=== PATIENT | male | born 1940 | race Caucasian/White ===

== ENCOUNTER → 2016-05-12 | Outpatient (CLI) | payer OTHER ==
[~2016-05-12] MED LIST: ADVIN25050 INH; AMOX500C3 PO; ATOR-26 PO; FLEC100T21 PO; GLCSC500400 PO; METO25TA56 PO; METO50TA16 PO; POTA8CAP6 PO; SYN150 PO; VITACAP26 PO; WARF10TA4 PO; WARF5TAB7 PO
--- NOTE | 2016-05-12 15:38 | DIAGNOSTIC IMAGING REPORT ---
RIGHT FOOT 3 VIEWS CLINICAL HISTORY: Nonhealing ulcer. Attention fourth and fifth toes. FINDINGS: 3 views of the right foot are obtained. No prior studies are available for comparison at the time of dictation. The skeletal structures are osteopenic. No fracture is seen. Moderate arthritic change is present at the first metatarsophalangeal joint. No periostitis or bony erosion is seen in the fourth or fifth toes as clinically queried. Mild soft tissue swelling is present in the lateral aspect of the foot. No subcutaneous gas or radiodense foreign body is seen. Atherosclerotic calcification is noted in the regional arteries. IMPRESSION: 1. No acute bony abnormality is seen in the right foot. 2. Osteopenia and arthritic change as above. 3. Soft tissue edema is noted in the lateral forefoot and there is atherosclerotic calcification of the regional arteries. Electronically signed by: Genaro Cottrell M.D. 05/12/2016 3:37 PM Dictated Date/Time: 05/12/2016 3:35 PM
== END | disposition home or self-care (01) ==
LOC: C.RAD 14:48
PROVIDERS: ATTEND Emergency Medicine
DX: L98.499 Non-pressure chronic ulcer of skin of other sites with unspecified severity (principal)

== ENCOUNTER → 2016-07-20 | Outpatient (CLI) | payer OTHER ==
[~2016-07-20] MED LIST changes: -AMOX500C3 PO
== END | disposition home or self-care (01) ==
LOC: C.RDSM 13:38
PROVIDERS: ATTEND Family Medicine Sports Medicine
DX: M25.562 Pain in left knee (principal)

== ENCOUNTER 2022-04-01 10:16 | Inpatient (IN) ==
[2022-04-01] MEDS ORDERED: SODIUM BICARB 8.4% INJ 50 MEQ/50 ML SYR IV ONE ×4 (10:30→11:12)
[2022-04-01] MEDS ORDERED: SODIUM BICARBONATE 8.4% INJ 50 MEQ/50 ML VIAL IV STA ×2 (10:33→10:57)
[2022-04-01] MEDS ORDERED: ACTIVATED CHARCOAL/SORBITOL 25 GM/120 ML TUBE PO STA (10:33)
[2022-04-01] MEDS ORDERED: MAGNESIUM SULFATE / D5W 1 GM/100 ML BAG IV SCH (10:37)
[2022-04-01] MEDS ORDERED: MAGNESIUM SULFATE / D5W 1 GM/100 ML BAG IV STA (10:38)
[2022-04-01] MEDS ORDERED: CHARCOAL, ACTIVATED LIQ 25 GM/120 ML TUBE PO ONE ×2 (10:42→10:43)
[2022-04-01] MEDS ORDERED: CHARCOAL, ACTIVATED LIQ 25 GM/120 ML TUBE PO STA (10:49)
[2022-04-01 10:50] LABS: Basophils # (auto) 0.04 K/uL (0-0.2); Basophils % (auto) 0.5 %; Eosinophils # (auto) 0.34 K/uL (0-0.50); Eosinophils % (auto) 4.5 %; Hematocrit (blood only) 41.4 % (40.1-51.0); Hemoglobin 13.8 g/dl (14.0-18.0); Immature Granulocytes # (auto) 0.03 K/uL (0.00-0.02); Immature Granulocytes % (auto) 0.4 %; Lymphocytes # (auto) 2.01 K/uL (1.2-3.4); Lymphocytes % (auto) 26.3 %; Mean Corpuscular Hemoglobin 31.7 pg (25.0-34.0); Mean Corpuscular Hgb Conc 33.3 g/dL (32.0-36.0); Monocytes # (auto) 0.34 K/uL (0.24-0.82); Monocytes % (auto) 4.5 %; Neutrophils # (auto) 4.88 K/uL (1.4-6.5); Neutrophils % (auto) 63.8 %; Platelet Count 230 K/uL (130-400); RDW Coefficient of Variation 12.8 % (11.5-14.5); Red Blood Count 4.36 M/uL (4.63-6.08); White Blood Count 7.64 K/ul (4.8-10.8)
[2022-04-01 10:58] LABS: iSTAT Creatinine 1.1 mg/dl (0.6-1.3); iSTAT Hemoglobin 13.9 g/dl (14.0-18.0); iSTAT Ionized Calcium 1.13 mmol/l (1.12-1.32); iSTAT Potassium 3.9 mmol/L (3.3-5.0)
[2022-04-01 11:07] LABS: Prothrombin Time 10.9 Seconds (9.0-12.0)
[2022-04-01] MEDS: MAGNESIUM SULFATE / D5W 1 GM/100 ML BAG IV SCH ×2 (11:08→11:38)
[2022-04-01] MEDS ORDERED: SODIUM BICARBONATE 8.4% 150 MEQ in WATER, STERILE 1,000 ML IV ONE (11:15)
[2022-04-01 11:21] LABS: Albumin Globulin Ratio 1.2 (0.9-2); Albumin Level 3.9 gm/dl (3.4-5.0); BUN Creatinine Ratio 10.5 (10-20); Bilirubin,Total 1.2 mg/dl (0.2-1.0); Creatinine Clr Calc Pharmacy 60.5 ml/min; Est GFR (African American) 76.2 ml/min; Est GFR (Non-African American) 65.8 ml/min; Globulin 3.3 gm/dl (2.5-4.0); Magnesium 1.8 mg/dl (1.7-2.4); Total Protein 7.2 gm/dl (6.0-8.3)
[2022-04-01 11:22] LABS: Base Excess VBG 19.7 mEq/L; HCO3 VBG 45 mmol/L; Oxygen Saturation VBG < 60.0 %; PCO2 VBG 53 mmHg (38-50); PO2 VBG 22 mmHg; pH VBG 7.54 (7.36-7.41)
[2022-04-01 11:23] LABS: Acetaminophen < 3 ug/ml (10-30); Salicylate < 3.0 mg/dl (3.0-30)
[2022-04-01] MEDS ORDERED: POTASSIUM CHLORIDE 10 MEQ TABCR PO STA (11:28)
[2022-04-01] MEDS ORDERED: POTASSIUM CHLORIDE / WTR 10 MEQ/100 ML PLCT IV ONE (11:28)
[2022-04-01] MEDS ORDERED: SODIUM BICARB 8.4% INJ 50 MEQ/50 ML SYR IV STA (11:28)
--- NOTE | 2022-04-01 11:35 | XRay Report ---
XR chest 1V portable HISTORY: 82 years-old Male od acute drug overdose COMPARISON: 02/02/2011 TECHNIQUE: AP view of the chest FINDINGS: Cardiac silhouette is enlarged. Pulmonary vascular congestion with interstitial coarsening. No pneumo thorax. Once again the costophrenic angles. Ill-defined bilateral airspace densities. Degenerative ch anges of the shoulders and spine. IMPRESSION: 1. Cardiomegaly with right greater than left interstitial coarsening. Findings may represent pulmonar y edema versus a nonspecific interstitial sinus. 2. Probable trace pleural effusions. ACT 112: Negative or not required by law. The above report was generated using voice recognition software. It may contain grammatical, syntax o r spelling errors. Electronically signed by: Isauro Ahn M.D. 04/01/2022 11:33 AM
[2022-04-01 11:39] LABS: Appearance Urine Clear (Clear); Bilirubin Urine Negative (Negative); Blood Urine Negative (Negative); Color Urine Yellow; Glucose Urine UA Negative (Negative); Ketones Urine Negative (Negative); Leukocyte Esterase Urine Negative (Negative); Nitrite Urine Negative (Negative); Protein Urine Negative (Negative); Specific Gravity Urine 1.008 (1.000-1.030); Urobilinogen Urine Negative (Negative); pH Urine >= 9.0 (4.5-7.5)
[2022-04-01 11:53] LABS: Troponin I High Sensitivity 9.6 pg/ml (0-20)
[2022-04-01 11:58] LABS: Amphetamines+Metham, Urine Neg (Neg); Barbiturates, Urine Neg (Neg); Benzodiazepine, Urine Neg (Neg); Cocaine, Urine Neg (Neg); MDMA (Ecstacy), Urine Neg (Neg); Methadone, Urine Neg (Neg); Opiate, Urine Neg (Neg); Phencyclidine, Urine Neg (Neg)
--- NOTE | 2022-04-01 12:30 | Emergency Department Note ---
Impression & Plan Overdose ED Provider Note INFORMANT: Patient and EMS ED PROVIDER(S): Edison Carrillo DO CHIEF COMPLAINT: Flecainide overdose PLAN: Disposition: ICU Condition: Stable Outpatient prescription management: none Referral: Hospitalist and eyeglass inspector as well as toxicology MEDICAL DECISION MAKING: This is a 82-year-old male who presents to the ED with a chief complaint of an accidental overdose. The patient is chronically on flecainide as well as apixaban for chronic A. fib. The patient states that he took approximately 10- 100 mg flecainide tablets around 8 AM. This was by accident, he reports. The patient began feeling lightheaded and dizzy later this morning. He also had some nausea and shakiness. The patient subsequently called EMS and was brought into the ED for evaluation. He did have a little vomiting in route by EMS but did not vomit up any pills. The patient states that he actually drank 38 ounces of Gatorade after the ingestion and tried to cause himself to vomit but was unable to do so. Shortly after the patient's arrival, I did speak with poison control. I spoke with Dr. Barger. He recommended 100 mg of activated charcoal as well as 4 A of IV bicarb 8.4% as well as 4 g of IV magnesium sulfate. This was all administered shortly after the patient arrived. His initial twelve-lead EKG shows a wide QRS complex almost sine wave like at a rate of 63. Initial labs showed a sodium 134 and a potassium of 3.9. This was a i- STAT lab. His BUN is 10 and creatinine is 1.1. Hemoglobin 13.9. Anion gap was 20. After 4 A of IV bicarb the patient's QRS did narrow some. His QTC remained slightly elevated. The patient was then placed on a sodium bicarb drip 3 A of bicarb and 1 L of water at 250 cc/h. The patient received a total of 10 A of IV bicarb. He also was then given 40 mill equivalents of oral potassium as well as started on a IV potassium drip at 10 mill equivalents per hour. Toxicology reports that the sodium goal is 1 50-1 55 with a pH goal of 7.5-7.55 on a VBG. He is to have blood work every 2 hours and an EKG every hour until stable. Dr. Barger from toxicology also suggested perhaps a prophylactic transvenous pacemaker if heart rates go below 60. I did speak with the eyeglass inspector, Dr. De Los Santos as well as the hospitalist here. The patient will be admitted to the ICU for further evaluation and care. The patient was never hypotensive during his ED stay. A chest x-ray was negative for acute disease. CBC and chemistry panel was unremarkable. Glucose is 201. Troponin was negative. Lipase was negative. Tylenol, salicylates and alcohol were negative. Urine tox screen was negative. 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 Triage Nursing notes reviewed. Vital Signs: reviewed Prior /Outside records reviewed: none Differential diagnosis: Differential includes overdose, arrhythmia, electrolyte abnormality, other toxicologic or metabolic issues. Diagnostics, as interpreted by me: 12 lead ECG: Twelve-lead EKG #1: Per my interpretation shows wide QRS sine wave type pattern at a rate of 63. Wide QRS and prolonged QTC, twelve-lead EKG #2 there is a wide-complex QRS with a narrow QRS complex and slightly improved QTC. No ectopy. Twelve-lead EKG #4 shows a sinus rhythm first-degree AV block heart rate of 62. Right bundle branch block. QRS duration is 202 and QTC is 554. Cardiac Monitoring: Monitor showed a wide QRS complex that narrowed with time. Medical decision rules: none Imaging studies: Chest x-ray: No acute disease Procedures: none. Critical care: I have personally spent 90 minutes of critical care time in the direct management of this patient. This includes bedside care, interpretation of diagnostic studies, and testing, discussion with consultants, patient, and family members, and other required patient management activities. This 90 minutes is in excess of all separately billable procedures. HPI: This is a 82-year-old male who presents to the ED with a chief complaint of an accidental overdose. The patient is chronically on flecainide as well as apixaban for chronic A. fib. The patient states that he took approximately 10- 100 mg flecainide tablets around 8 AM. This was by accident, he reports. The patient began feeling lightheaded and dizzy later this morning. He also had some nausea and shakiness. The patient subsequently called EMS and was brought into the ED for evaluation. PAST MEDICAL HISTORY:A. fib chronically on Xarelto and flecainide see below. PAST SURGICAL HISTORY: See Below SOCIAL HISTORY: See Below. Lives with . HOME MEDICATIONS: See Below ALLERGIES: See Below VITALS: See Below PHYSICAL EXAMINATION: CONSTITUTIONAL/VITAL SIGNS: Reviewed GENERAL: No distress. Awake alert and oriented. INTEGUMENTARY: Warm, dry, and [place]. HEAD: Normocephalic. EYES: without scleral icterus. ENT/OROPHARYNX: clear and moist. RESPIRATORY: No increased work of breathing. Lungs clear. CARDIOVASCULAR: Regular rate. Regular rhythm. GI/ABDOMEN: Soft and nontender. . EXTREMITIES: Normal NEUROLOGICAL: Intact without focal deficits. PSYCHIATRIC: Normal affect. MUSCULOSKELETAL: Normal. TRIAGE NURSING DOCUMENTATION REVIEWED. Past Med/Surg History Medical History A-fib Diabetes Family History Other Heart disease Hypertension Social History Smoking Status: Former smoker Tobacco Type: Cigarettes Preferred Language: Palestinian marital status: Current Living Situation: Spouse current occupational status: employed Feels Safe at Home: Yes Allergies Allergies Allergy/AdvReac Type Severity Reaction Status Date / Time No Known Allergies Allergy Unknown Unverified 02/10/16 08:28 Home Meds Home Medications Medication Instructions Recorded Confirmed ATORVASTATIN (LIPITOR) 80 mg PO DAILY ##0 02/02/11 Fluticasone Prop/Salmeterol 1 puff inhalation BID ##0 02/02/11 (Advair Diskus 250/50 Mcg *) Glucosamine-Chondroitin 1 tab PO DAILY ##0 02/02/11 (Glucosamine/Chondroitin) Levothyroxine (Synthroid *) 150 mcg PO DAILY ##0 02/02/11 Metoprolol Tartrate (Lopressor) 50 mg PO HS ##0 04/13/11 (Lopressor) Metoprolol Tartrate (Lopressor) 100 mg PO DAILY ##0 04/13/11 (Lopressor) Flecainide (Tambocor) 100 mg PO BID #0 tabs 12/17/13 Warfarin Sod (Jantoven) 5 mg PO 6XWK #0 tabs 12/17/13 Potassium Chloride (Klor-Con Ext PO DAILY #0 caps 10/20/15 Rel) VITAMINS C & E (VITAMIN C) 1 tab PO DAILY ##0 10/20/15 Warfarin Sod (Jantoven) 10 mg PO SUNDAY #0 tabs 11/20/15 Results & Data (ED) Vital Signs Vital Signs - 24 hr 04/01/22 10:20 04/01/22 10:30 04/01/22 10:45 Temperature 36.9 C Temperature Source Oral Pulse Rate 62 61 62 Pulse Rate from SpO2 Sensor 62 64 Pulse Rhythm Regular Pulse Strength Normal Respiratory Rate 20 25 H 23 Respiratory Effort / Characteristics Non-Labored Spontaneous Respiratory Depth Normal Respiratory Pattern Regular Blood Pressure 147/96 H 159/95 H Blood Pressure Mean 113 116 Blood Pressure Position Lying Pulse Oximetry 99 96 100 Oxygen Delivery Method Room Air Sepsis Recent Fever Within 48 Hours No Sepsis New/Unexplained Change in Mental Status N/A Sepsis Action Taken by Nursing No Action Required 04/01/22 11:00 04/01/22 11:15 04/01/22 11:15 Temperature Temperature Source Pulse Rate 63 66 Pulse Rate from SpO2 Sensor 63 66 Pulse Rhythm Pulse Strength Respiratory Rate 22 20 Respiratory Effort / Characteristics Respiratory Depth Respiratory Pattern Blood Pressure 147/83 H 140/77 Blood Pressure Mean 104 98 Blood Pressure Position Pulse Oximetry 97 96 Oxygen Delivery Method Sepsis Recent Fever Within 48 Hours Sepsis New/Unexplained Change in Mental Status Sepsis Action Taken by Nursing 04/01/22 11:30 04/01/22 11:30 04/01/22 11:45 Temperature Temperature Source Pulse Rate 59 L Pulse Rate from SpO2 Sensor 60 Pulse Rhythm Pulse Strength Respiratory Rate 17 Respiratory Effort / Characteristics Respiratory Depth Respiratory Pattern Blood Pressure 137/73 132/81 Blood Pressure Mean 94 98 Blood Pressure Position Pulse Oximetry 95 Oxygen Delivery Method Sepsis Recent Fever Within 48 Hours Sepsis New/Unexplained Change in Mental Status Sepsis Action Taken by Nursing 04/01/22 11:45 04/01/22 12:00 04/01/22 12:00 Temperature Temperature Source Pulse Rate 64 67 Pulse Rate from SpO2 Sensor 65 67 Pulse Rhythm Pulse Strength Respiratory Rate 17 21 Respiratory Effort / Characteristics Respiratory Depth Respiratory Pattern Blood Pressure 151/101 H Blood Pressure Mean 117 Blood Pressure Position Pulse Oximetry 94 92 Oxygen Delivery Method Sepsis Recent Fever Within 48 Hours Sepsis New/Unexplained Change in Mental Status Sepsis Action Taken by Nursing Laboratory Data 04/01/22 10:30 04/01/22 10:30 Lab Results 04/01/22 04/01/22 04/01/22 Range/Units 10:30 10:30 10:30 WBC (4.8-10.8) K/ul RBC (4.63-6.08) M/uL Hgb (14.0-18.0) g/dl POC Hgb (14.0-18.0) g/dl Hct (40.1-51.0) % POC Hct (42-52) % MCV (80.0-100.0) fL MCH (25.0-34.0) pg MCHC (32.0-36.0) g/dL RDW Std Deviation (36.4-46.3) fL RDW Coeff of Segun (11.5-14.5) % Plt Count (130-400) K/uL MPV (9.4-12.4) fL Immature Gran % (Auto) % Neut % (Auto) % Lymph % (Auto) % [place] % (Auto) % Eos % (Auto) % Baso % (Auto) % Neut # (Auto) (1.4-6.5) K/uL Lymph # (Auto) (1.2-3.4) K/uL [place] # (Auto) (0.24-0.82) K/uL Eos # (Auto) (0-0.50) K/uL Baso # (Auto) (0-0.2) K/uL Immature Gran # (Auto) (0.00-0.02) K/uL PT 10.9 (9.0-12.0) Seconds INR 1.0 (0.9-1.1) VBG pH (7.36-7.41) VBG pCO2 (38-50) mmHg VBG pO2 mmHg VBG HCO3 mmol/L VBG O2 Saturation % VBG Base Excess mEq/L POC Sodium (135-144) mmol/L Sodium 134 L (136-145) mmol/L POC Potassium (3.3-5.0) mmol/L Potassium 4.0 (3.5-5.1) mmol/L POC Chloride (101-112) mmol/L Chloride 98 (98-107) mmol/L Carbon Dioxide 26 (21-32) mmol/L POC Total CO2 (24-31) mmol/L Anion Gap 10 (3-11) POC Anion Gap (16-25) mmol/L POC BUN (7-18) mg/dl BUN 11 (6-23) mg/dl Creatinine 1.05 (0.6-1.4) mg/dl POC Creatinine (0.6-1.3) mg/dl Est Cr Clr Drug Dosing 60.5 ml/min Est GFR ( Amer) 76.2 ml/min Est GFR (Non-Af Amer) 65.8 ml/min BUN/Creatinine Ratio 10.5 (10-20) Glucose 201 H (70-99(Fasting)) mg/dl POC Glucose (other) (70-99) mg/dl Calcium 9.0 (8.5-10.1) mg/dl POC Ioniz Calcium David (1.12-1.32) mmol/l Magnesium 1.8 (1.7-2.4) mg/dl Total Bilirubin 1.2 H (0.2-1.0) mg/dl AST 21 (13-39) U/L ALT 21 (7-52) U/L Alkaline Phosphatase 73 (34-104) U/L Total Creatine Kinase 77 (30-223) U/L Troponin I High Sens 9.6 (0-20) pg/ml Total Protein 7.2 (6.0-8.3) gm/dl Albumin 3.9 (3.4-5.0) gm/dl Globulin 3.3 (2.5-4.0) gm/dl Albumin/Globulin Ratio 1.2 (0.9-2) Lipase 40 (11-82) U/L Urine Color Urine Appearance (Clear) Urine pH (4.5-7.5) Ur Specific [place] (1.000-1.030) Urine Protein (Negative) Urine Glucose (UA) (Negative) Urine Ketones (Negative) Urine Blood (Negative) Urine Nitrite (Negative) Urine Bilirubin (Negative) Urine Urobilinogen (Negative) Ur Leukocyte Esterase (Negative) Salicylates < 3.0 L (3.0-30) mg/dl Urine Opiates Screen (Neg) Ur Methadone, Qual (Neg) Acetaminophen < 3 L (10-30) ug/ml Urine Barbiturates (Neg) Ur Phencyclidine (PCP) (Neg) U Amphetamin/Meth Scrn (Neg) MDMA (Ecstasy) Screen (Neg) U Benzodiazepines Scrn (Neg) Ur Cocaine Metabolite (Neg) U Marijuana (THC) Screen (Neg) Ethyl Alcohol mg/dL (<10.0) mg/dl 04/01/22 04/01/22 04/01/22 Range/Units 10:30 10:45 10:57 WBC 7.64 (4.8-10.8) K/ul RBC 4.36 L (4.63-6.08) M/uL Hgb 13.8 L (14.0-18.0) g/dl POC Hgb 13.9 L (14.0-18.0) g/dl Hct 41.4 (40.1-51.0) % POC Hct 41 L (42-52) % MCV 95.0 (80.0-100.0) fL MCH 31.7 (25.0-34.0) pg MCHC 33.3 (32.0-36.0) g/dL RDW Std Deviation 45.0 (36.4-46.3) fL RDW Coeff of Seg[place] 12.8 (11.5-14.5) % Plt Count 230 (130-400) K/uL MPV 10.0 (9.4-12.4) fL Immature Gran % (Auto) 0.4 % Neut % (Auto) 63.8 % Lymph % (Auto) 26.3 % [place] % (Auto) 4.5 % Eos % (Auto) 4.5 % Baso % (Auto) 0.5 % Neut # (Auto) 4.88 (1.4-6.5) K/uL Lymph # (Auto) 2.01 (1.2-3.4) K/uL [place] # (Auto) 0.34 (0.24-0.82) K/uL Eos # (Auto) 0.34 (0-0.50) K/uL Baso # (Auto) 0.04 (0-0.2) K/uL Immature Gran # (Auto) 0.03 H (0.00-0.02) K/uL PT (9.0-12.0) Seconds INR (0.9-1.1) VBG pH 7.54 H (7.36-7.41) VBG pCO2 53 H (38-50) mmHg VBG pO2 22 mmHg VBG HCO3 45 mmol/L VBG O2 Saturation < 60.0 % VBG Base Excess 19.7 mEq/L POC Sodium 134 L (135-144) mmol/L Sodium (136-145) mmol/L POC Potassium 3.9 (3.3-5.0) mmol/L Potassium (3.5-5.1) mmol/L POC Chloride 94 L (101-112) mmol/L Chloride (98-107) mmol/L Carbon Dioxide (21-32) mmol/L POC Total CO2 25 (24-31) mmol/L Anion Gap (3-11) POC Anion Gap 20.0 (16-25) mmol/L POC BUN 10 (7-18) mg/dl BUN (6-23) mg/dl Creatinine (0.6-1.4) mg/dl POC Creatinine 1.1 (0.6-1.3) mg/dl Est Cr Clr Drug Dosing ml/min Est GFR ( Amer) ml/min Est GFR (Non-Af Amer) ml/min BUN/Creatinine Ratio (10-20) Glucose (70-99(Fasting)) mg/dl POC Glucose (other) 191 H (70-99) mg/dl Calcium (8.5-10.1) mg/dl POC Ioniz Calcium David 1.13 (1.12-1.32) mmol/l Magnesium (1.7-2.4) mg/dl Total Bilirubin (0.2-1.0) mg/dl AST (13-39) U/L ALT (7-52) U/L Alkaline Phosphatase (34-104) U/L Total Creatine Kinase (30-223) U/L Troponin I High Sens (0-20) pg/ml Total Protein (6.0-8.3) gm/dl Albumin (3.4-5.0) gm/dl Globulin (2.5-4.0) gm/dl Albumin/Globulin Ratio (0.9-2) Lipase (11-82) U/L Urine Color Urine Appearance (Clear) Urine pH (4.5-7.5) Ur Specific [place] (1.000-1.030) Urine Protein (Negative) Urine Glucose (UA) (Negative) Urine Ketones (Negative) Urine Blood (Negative) Urine Nitrite (Negative) Urine Bilirubin (Negative) Urine Urobilinogen (Negative) Ur Leukocyte Esterase (Negative) Salicylates (3.0-30) mg/dl Urine Opiates Screen (Neg) Ur Methadone, Qual (Neg) Acetaminophen (10-30) ug/ml Urine Barbiturates (Neg) Ur Phencyclidine (PCP) (Neg) U Amphetamin/Meth Scrn (Neg) MDMA (Ecstasy) Screen (Neg) U Benzodiazepines Scrn (Neg) Ur Cocaine Metabolite (Neg) U Marijuana (THC) Screen (Neg) Ethyl Alcohol mg/dL (<10.0) mg/dl 04/01/22 04/01/22 04/01/22 Range/Units 10:57 11:20 11:20 WBC (4.8-10.8) K/ul RBC (4.63-6.08) M/uL Hgb (14.0-18.0) g/dl POC Hgb (14.0-18.0) g/dl Hct (40.1-51.0) % POC Hct (42-52) % MCV (80.0-100.0) fL MCH (25.0-34.0) pg MCHC (32.0-36.0) g/dL RDW Std Deviation (36.4-46.3) fL RDW Coeff of [place] (11.5-14.5) % Plt Count (130-400) K/uL MPV (9.4-12.4) fL Immature Gran % (Auto) % Neut % (Auto) % Lymph % (Auto) % [place] % (Auto) % Eos % (Auto) % Baso % (Auto) % Neut # (Auto) (1.4-6.5) K/uL Lymph # (Auto) (1.2-3.4) K/uL [place] # (Auto) (0.24-0.82) K/uL Eos # (Auto) (0-0.50) K/uL Baso # (Auto) (0-0.2) K/uL Immature Gran # (Auto) (0.00-0.02) K/uL PT (9.0-12.0) Seconds INR (0.9-1.1) VBG pH (7.36-7.41) VBG pCO2 (38-50) mmHg VBG pO2 mmHg VBG HCO3 mmol/L VBG O2 Saturation % VBG Base Excess mEq/L POC Sodium (135-144) mmol/L Sodium (136-145) mmol/L POC Potassium (3.3-5.0) mmol/L Potassium (3.5-5.1) mmol/L POC Chloride (101-112) mmol/L Chloride (98-107) mmol/L Carbon Dioxide (21-32) mmol/L POC Total CO2 (24-31) mmol/L Anion Gap (3-11) POC Anion Gap (16-25) mmol/L POC BUN (7-18) mg/dl BUN (6-23) mg/dl Creatinine (0.6-1.4) mg/dl POC Creatinine (0.6-1.3) mg/dl Est Cr Clr Drug Dosing ml/min Est GFR ( Amer) ml/min Est GFR (Non-Af Amer) ml/min BUN/Creatinine Ratio (10-20) Glucose (70-99(Fasting)) mg/dl POC Glucose (other) (70-99) mg/dl Calcium (8.5-10.1) mg/dl POC Ioniz Calcium David (1.12-1.32) mmol/l Magnesium (1.7-2.4) mg/dl Total Bilirubin (0.2-1.0) mg/dl AST (13-39) U/L ALT (7-52) U/L Alkaline Phosphatase (34-104) U/L Total Creatine Kinase (30-223) U/L Troponin I High Sens (0-20) pg/ml Total Protein (6.0-8.3) gm/dl Albumin (3.4-5.0) gm/dl Globulin (2.5-4.0) gm/dl Albumin/Globulin Ratio (0.9-2) Lipase (11-82) U/L Urine Color Yellow Urine Appearance Clear (Clear) Urine pH >= 9.0 H (4.5-7.5) Ur Specific [place] 1.008 (1.000-1.030) Urine Protein Negative (Negative) Urine Glucose (UA) Negative (Negative) Urine Ketones Negative (Negative) Urine Blood Negative (Negative) Urine Nitrite Negative (Negative) Urine Bilirubin Negative (Negative) Urine Urobilinogen Negative (Negative) Ur Leukocyte Esterase Negative (Negative) Salicylates (3.0-30) mg/dl Urine Opiates Screen Neg (Neg) Ur Methadone, Qual Neg (Neg) Acetaminophen (10-30) ug/ml Urine Barbiturates Neg (Neg) Ur Phencyclidine (PCP) Neg (Neg) U Amphetamin/Meth Scrn Neg (Neg) MDMA (Ecstasy) Screen Neg (Neg) U Benzodiazepines Scrn Neg (Neg) Ur Cocaine Metabolite Neg (Neg) U Marijuana (THC) Screen Neg (Neg) Ethyl Alcohol mg/dL < 10.0 (<10.0) mg/dl Administered Medications Sodium Bicarbonate 150 meq/ (Sterile Water) 1,150 mls @ 250 mls/hr IV .[id number] ONE Stop: 04/01/22 15:50 Last Admin: 04/01/22 11:40 Dose: 250 mls/hr Documented By: WINTER Potassium Chloride (K Adilson / Wtr) 10 meq in 100 mls @ 100 mls/hr IV ONE ONE; Protocol Stop: 04/01/22 12:27 Last Admin: 04/01/22 11:51 Dose: 100 mls/hr Documented By: WINTER Discontinued Medications Charcoal (Charcoal, Activated Liq 25 Gm/120 Ml Tube) Confirm Administered Dose 50 gm PO .STK-MED ONE Stop: 04/01/22 10:43 Last Admin: 04/01/22 10:57 Dose: Not Given Documented By: NEERU Charcoal (Charcoal, Activated Liq 25 Gm/120 Ml Tube) Confirm Administered Dose 50 gm PO .STK-MED ONE Stop: 04/01/22 10:44 Last Admin: 04/01/22 10:57 Dose: Not Given Documented By: NEERU Charcoal (Charcoal, Activated Liq 25 Gm/120 Ml Tube) 100 gm PO NOW [facility] Stop: 04/01/22 10:50 Last Admin: 04/01/22 10:59 Dose: 100 gm Documented By: NEERU Magnesium Sulfate/Dextrose (Magnesium Sulfate / D5w) 1 gm in 100 mls @ 400 mls/hr IV Q15M [facility] Stop: 04/01/22 10:51 Last Admin: 04/01/22 10:56 Dose: 400 mls/hr Documented By: NEERU Magnesium Sulfate/Dextrose (Magnesium Sulfate / D5w) 1 gm in 100 mls @ 200 mls/hr IV Q30M [facility] Stop: 04/01/22 11:37 Last Admin: 04/01/22 11:38 Dose: 200 mls/hr Documented By: Infusion: 04/01/22 11:38 Dose: 0 mls/hr Documented By: Admin: 04/01/22 11:08 Dose: 200 mls/hr Documented By: NEERU Potassium Chloride (Potassium Chloride 10 Meq Tabcr) 40 meq PO NOW STA Stop: 04/01/22 11:29 Last Admin: 04/01/22 11:51 Dose: 40 meq Documented By: WINTER Sodium Bicarbonate (Sodium Bicarb 8.4% Inj 50 Meq/50 Ml Syr) Confirm Administered Dose 200 meq IV .STK-MED ONE Stop: 04/01/22 10:31 Last Admin: 04/01/22 10:57 Dose: Not Given Documented By: NEERU Sodium Bicarbonate (Sodium Bicarbonate 8.4% Inj 50 Meq/50 Ml Vial) 200 meq IV NOW STA Stop: 04/01/22 10:34 Last Admin: 04/01/22 10:57 Dose: 200 meq Documented By: NEERU Sodium Bicarbonate (Sodium Bicarb 8.4% Inj 50 Meq/50 Ml Syr) Confirm Administered Dose 150 meq IV .STK-MED ONE Stop: 04/01/22 10:56 Last Admin: 04/01/22 10:58 Dose: Not Given Documented By: NEERU Sodium Bicarbonate (Sodium Bicarbonate 8.4% Inj 50 Meq/50 Ml Vial) 200 meq IV NOW STA Stop: 04/01/22 10:58 Last Admin: 04/01/22 11:07 Dose: 200 meq Documented By: NEERU Sodium Bicarbonate (Sodium Bicarb 8.4% Inj 50 Meq/50 Ml Syr) Confirm Administered Dose 50 meq IV .STK-MED ONE Stop: 04/01/22 10:58 Last Admin: 04/01/22 10:58 Dose: Not Given Documented By: NEERU Sodium Bicarbonate (Sodium Bicarb 8.4% Inj 50 Meq/50 Ml Syr) Confirm Administered Dose 200 meq IV .STK-MED ONE Stop: 04/01/22 11:13 Last Admin: 04/01/22 11:40 Dose: Not Given Documented By: WINTER Sodium Bicarbonate (Sodium Bicarb 8.4% Inj 50 Meq/50 Ml Syr) 100 meq IV NOW STA Stop: 04/01/22 11:29 Last Admin: 04/01/22 11:37 Dose: 100 meq Documented By: WINTER Imaging Data Radiologist's Impression: Chest X-Ray 04/01/22 10:33 XR chest 1V portable HISTORY: 82 years-old Male od acute drug overdose COMPARISON: 02/02/2011 TECHNIQUE: AP view of the chest FINDINGS: Cardiac silhouette is enlarged. Pulmonary vascular congestion with interstitial coarsening. No pneumothorax. Once again the costophrenic angles. Ill-defined bilateral airspace densities. Degenerative changes of the shoulders and spine. IMPRESSION: 1. Cardiomegaly with right greater than left interstitial coarsening. Findings may represent pulmonary edema versus a nonspecific interstitial sinus. 2. Probable trace pleural effusions. ACT 112: Negative or not required by law. The above report was generated using voice recognition software. It may contain grammatical, syntax or spelling errors. Electronically signed by: Isauro Ahn M.D. 04/01/2022 11:33 AM Discharge Plan Visit Data Chief Complaint: Overdose (Accidental) Stated Complaint: OVERDOSE ED Provider: Edison Carrillo Discharge Problem: Overdose Patient Disposition: Admitted As Inpatient Forms Stand Alone Forms: [facility], [facility] Emergency Department, Important Visit Information Prescriptions Prescriptions: No Action ATORVASTATIN (LIPITOR) 80 MG tablet 80 mg PO DAILY Qty: 0 Fluticasone Prop/Salmeterol (Advair Diskus 250/50 Mcg *) AEROSOL,POWDR 1 puff Inhalation BID Qty: 0 Glucosamine-Chondroitin (Glucosamine/Chondroitin) 500 MG/400 MG capsule 1 tab PO DAILY Qty: 0 Levothyroxine (Synthroid *) 0.15 MG tablet 150 mcg PO DAILY Qty: 0 Metoprolol Tartrate (Lopressor) (Lopressor) 50 MG tablet 100 mg PO DAILY Qty: 0 Metoprolol Tartrate (Lopressor) (Lopressor) 25 MG tablet 50 mg PO HS Qty: 0 Flecainide (Tambocor) 100 MG tablet 100 mg PO BID Qty: 0 Warfarin Sod (Jantoven) 5 MG tablet 5 mg PO 6XWK Qty: 0 Label Comments: EXCEPT MONDAYS Potassium Chloride (Klor-Con Ext Rel) [id number] PO DAILY Qty: 0 VITAMINS C & E (VITAMIN C) 1 CAP capsule 1 tab PO DAILY Qty: 0 Warfarin Sod (Jantoven) 10 MG tablet 10 mg PO SUNDAY Qty: 0 Referrals Referrals: Timmy Gee DO [Primary Care Provider] -
--- NOTE | 2022-04-01 12:45 | Cardiology Consultation ---
Date of Consultation April 01, 2022 Assessment & Plan (1) Adverse effect of flecainide: (2) PAF (paroxysmal atrial fibrillation): (3) Regular wide QRS complex tachycardia: (4) History of left bundle branch block (LBBB): (5) Hypertension: (6) PFO (patent foramen ovale): (7) Dissection of vertebral artery: (8) Hx-TIA (transient ischemic attack): (9) Overdose: (10) Diabetes: Plan The ER staff discussed with poison control who recommended alkalinization with sodium bicarb and possible temporary pacemaker placement after receiving activated charcoal Luckily, patient is hemodynamically stable with heart rates in the 60s We will ask our critical care colleagues for central line placement in case temporary pacing is necessary Meanwhile, external pacer pads should be placed Continue sodium bicarb as per poison control recommendations Obviously, this is a very unusual situation. I reviewed the literature with several case reports that showed possible benefits of lipid emulsion as well in patients that are hemodynamically unstable No benefit for hemodialysis ECMO is also a possible need in the event of hemodynamic collapse The patient and his daughter at the bedside were counseled on the gravity of the situation and significant possibility of deadly arrhythmias and need for possible temporary pacing, they both state they understand History of Present Illness Reason for Consultation: Flecainide overdose Requesting Physician: NOHEMI Attending Physician: Dr. Odom History of Present Illness The patient is a somewhat demented 82-year-old male who presented to [facility] early in the a.m. of 04/01/2022 with complaints of nausea and lightheadedness after accidentally ingesting 1000 mg of flecainide. The patient states that this was not intentional. He had 10 tablets of flecainide 100 mg in his hand and he forgot they were there. He then mistakenly took all of them. Approximately 20 minutes afterwards symptoms began and he realized that he took those tablets. He attempted to induce vomiting at home but was unable. Upon arrival to the emergency department patient was found to be in wide-complex rhythm without clear P waves. He was hemodynamically stable and alert. The ER staff conferred with poison control and was recommend the patient receive activated charcoal along with sodium bicarb 4 A which she did. I discussed the case with the admitting hospitalist and recommended external pacer pads be placed and once admitted to the intensive care unit asking our critical care colleagues to place a central line for possible temporary pacemaker. Currently the patient states that he still feels nauseous and lightheaded but otherwise well PMHX: 1. Paroxysmal atrial fibrillation controlled in sinus rhythm, combination of flecainide and metoprolol. Chronically anticoagulated with warfarin 2. Chronically abnormal EKG. Nonspecific interventricular conduction delay/left bundle-branch block 3. Hypertension. 4. Hyperlipidemia. 5. History of small patent foramen ovale. 6. History of vertebral dissection with TIA in 1995. 7. Hypothyroidism, on therapy. Allergies Allergy/AdvReac Type Severity Reaction Status Date / Time No Known Allergies Allergy Unknown Unverified 02/10/16 08:28 Home Medications Medication Instructions Recorded Confirmed Type ATORVASTATIN (LIPITOR) 80 mg PO DAILY ##0 02/02/11 04/01/22 History Fluticasone Prop/Salmeterol 1 puff inhalation BID ##0 02/02/11 04/01/22 History (Advair Diskus 250/50 Mcg *) Glucosamine-Chondroitin 1 tab PO DAILY ##0 02/02/11 04/01/22 History (Glucosamine/Chondroitin) Levothyroxine (Synthroid *) 137 mcg PO DAILY ##0 02/02/11 04/01/22 History Metoprolol Tartrate (Lopressor) 50 mg PO HS ##0 04/13/11 04/01/22 History (Lopressor) Metoprolol Tartrate (Lopressor) 100 mg PO DAILY ##0 04/13/11 04/01/22 History (Lopressor) Flecainide (Tambocor) 100 mg PO BID #0 tabs 12/17/13 04/01/22 History Potassium Chloride (Klor-Con Ext PO DAILY #0 caps 10/20/15 History Rel) VITAMINS C & E (VITAMIN C) 1 tab PO DAILY ##0 10/20/15 History apixaban 5 mg tablet (Eliquis) 5 mg 04/01/22 History Patient History Medical History A-fib Diabetes History of left bundle branch block (LBBB) Hypertension PAF (paroxysmal atrial fibrillation) Surgical History H/O sinus surgery Family History Other Heart disease Hypertension Social History Smoking Status: Former smoker Tobacco Type: Cigarettes Hx Alcohol Use: No Hx Substance Use: No Preferred Language: Czech Communication Ability: Effective Beliefs That Will Affect Care: None marital status: Current Living Situation: Alone current occupational status: employed Feels Safe at Home: Yes Safety Concerns: Feels Safe At This Time Review of Systems Review of Systems: All systems reviewed & are unremarkable except as noted in HPI & below Physical Exam Physical Exam: General: Awake, alert and oriented x 3. No acute distress. HEENT: Normocephalic, atraumatic. Pupils equal, round and reactive to light and accommodation. Extraocular muscles are intact. Anicteric sclera. Moist mucous membranes. Neck: No JVD. No bruit. Cardiovascular: Regular. Positive S-4. Normal S-1 and S-2. No S-3. 3/6 mid to late systolic ejection murmur, greatest at the right sternal border, second intercostal space with radiation to the bilateral carotids. No rubs. Pulmonary: Clear to auscultation bilaterally. No rales, rhonchi, or wheezing. Abdomen: Bowel sounds x 4, soft. No rebound, guarding or tenderness. No organomegaly. Extremities: No clubbing, cyanosis or edema. +2 pedal pulses bilaterally. Skin: Warm and dry. Results & Data ([facility]) Vital Signs (Past 12 Hours) Vital Signs Temp Pulse Resp BP Pulse Ox O2 Del Method 04/01/22 12:00 67 21 92 04/01/22 12:00 151/101 H 04/01/22 11:45 64 17 94 04/01/22 11:45 132/81 04/01/22 11:30 59 L 17 95 04/01/22 11:30 137/73 04/01/22 11:15 66 20 96 04/01/22 11:15 140/77 04/01/22 11:00 63 22 147/83 H 97 04/01/22 10:45 62 23 159/95 H 100 04/01/22 10:30 61 25 H 96 04/01/22 10:20 36.9 C 62 20 147/96 H 99 Room Air
[2022-04-01 13:07] LABS: BUN Creatinine Ratio 12.5 (10-20); Calcium 6.9 mg/dl (8.5-10.1); Creatinine Clr Calc Pharmacy 79.4 ml/min; Est GFR (African American) 96.4 ml/min; Est GFR (Non-African American) 83.2 ml/min; Potassium 3.5 mmol/L (3.5-5.1)
[2022-04-01 13:18] LABS: Base Excess VBG 15.8 mEq/L; HCO3 VBG 42 mmol/L; Oxygen Saturation VBG < 60.0 %; PCO2 VBG 55 mmHg (38-50); PO2 VBG 18 mmHg; pH VBG 7.49 (7.36-7.41)
[2022-04-01 13:37] LABS: BUN Creatinine Ratio 10.9 (10-20); Calcium 7.8 mg/dl (8.5-10.1); Creatinine Clr Calc Pharmacy 69.1 ml/min; Est GFR (African American) 89.5 ml/min; Est GFR (Non-African American) 77.2 ml/min; Potassium 3.1 mmol/L (3.5-5.1)
--- NOTE | 2022-04-01 13:55 | History & Physical Report ---
Date of Service April 01, 2022 Assessment & Plan (1) Overdose: (2) Adverse effect of flecainide: (3) Regular wide QRS complex tachycardia: Plan: Patient presents with unintentional ingestion of approximately 10 tablets of 100 mg flecainide approximately 2 and half hours prior to presentation Admitting EKG shows wide QRS complex rhythm with QTC of 600s Admitting CBC, CMP unremarkable Hemodynamically stable; heart rate in 60s Patient received 10 A of bicarbonate, potassium and magnesium supplement in the ED. He also had 100 g of charcoal. Plan; Discussed with Dr. Barger from poison control. Recommendation are as follows: -Obtain twelve-lead EKG every hour to monitor for rhythm and QTc interval. If QTC is prolonged over 700ms or patient has torsades; recommend placement of prophylactic temporary pacemaker. Obtain BMP, magnesium and VBG every 2 hours. Goal of sodium is 150 to 155. Recommends hypertonic saline bolus of 100 cc and infusion if sodium is less than 150. VBG goal of pH of 7.5-7.55 -Continue on 150 M EQ bicarb drip in sterile water at rate of to 250 cc/h for 12 hours. After that, go down on the rate gradually while monitoring EKG every hour. If QRS is widened; restart the bicarb drip at previous rate. If patient becomes volume overloaded; recommend hyper concentrated bicarb with 4 amp of bicarb in 200 mL of free water. -Replete potassium and magnesium as necessary. Patient to be admitted to ICU for closer monitoring. Cardiology consulted for comanagement and possible temporary pacemaker placement. Discussed with director of casework department Chronic conditions; Hypothyroidism, hyperlipidemia, hypertension; home medications are on hold currently. DVT prophylaxis SCDs Full code History of Present Illness Chief Complaint: Unintentional overdose with flecainide Primary Care Provider: Timmy Gee, Past medical history of paroxysmal A. fib on flecainide 100 mg twice daily, metoprolol 100 mg in a.m. and 50 in at bedtime, Eliquis. History of chronic left bundle branch block, hypertension, hyperlipidemia Patient took approximately 10 tablets of 100 mg flecainide at around 8 AM unintentionally. 15 minutes after the ingestion, patient started to feel dizzy. EMS was called and patient was brought here. On the way, patient drank Gatorade/water and also tried to vomit; was unable to. Patient denies any loss of consciousness; reports that dizziness is better when lying down. He he complains of fluttering feeling in the chest along with nausea and shakiness. He denies any chest pain, shortness of breath, visual disturbances, abdominal pain or urinary symptoms. Patient is last echo was in October 2018; shows EF of 55 to 59%. He is currently on Eliquis for A. fib along with flecainide and metoprolol. He lives with his . History of remote smoking; denies other substance use. On presentation to the ED, patient was hemodynamically stable with SBP of 140s to 150. His heart rate was around 60s; he was saturating well in room air. Twelve-lead EKG showed wide QRS complex with QTC of 601. CBC, BMP and LFTs were unremarkable on initial lab test. Patient was given activated charcoal. He was also given 10 A of bicarb. He was started on IV bicarb drip. Patient will be admitted to ICU. Allergies Allergy/AdvReac Type Severity Reaction Status Date / Time No Known Allergies Allergy Unknown Unverified 02/10/16 08:28 Home Medications Medication Instructions Recorded Confirmed Type ATORVASTATIN (LIPITOR) 80 mg PO DAILY ##0 02/02/11 04/01/22 History Fluticasone Prop/Salmeterol 1 puff inhalation BID ##0 02/02/11 04/01/22 History (Advair Diskus 250/50 Mcg *) Glucosamine-Chondroitin 1 tab PO DAILY ##0 02/02/11 04/01/22 History (Glucosamine/Chondroitin) Levothyroxine (Synthroid *) 137 mcg PO DAILY ##0 02/02/11 04/01/22 History Metoprolol Tartrate (Lopressor) 50 mg PO HS ##0 04/13/11 04/01/22 History (Lopressor) Metoprolol Tartrate (Lopressor) 100 mg PO DAILY ##0 04/13/11 04/01/22 History (Lopressor) Flecainide (Tambocor) 100 mg PO BID #0 tabs 12/17/13 04/01/22 History Potassium Chloride (Klor-Con Ext PO DAILY #0 caps 10/20/15 History Rel) VITAMINS C & E (VITAMIN C) 1 tab PO DAILY ##0 10/20/15 History apixaban 5 mg tablet (Eliquis) 5 mg 04/01/22 History Past Med/Surg History Medical History (Updated 04/01/22 @ 13:44 by Shilo Odom MD) A-fib Diabetes History of left bundle branch block (LBBB) Hypertension PAF (paroxysmal atrial fibrillation) Surgical History (Updated 04/01/22 @ 13:45 by Shilo Odom MD) H/O sinus surgery Family History Other Heart disease Hypertension Social History Smoking Status: Former smoker Tobacco Type: Cigarettes Preferred Language: Armenian marital status: Current Living Situation: Spouse current occupational status: employed Feels Safe at Home: Yes Review of Systems Review of Systems: All systems reviewed & are unremarkable except as noted in Subjective Physical Exam Physical Exam: Constitutional: Alert orient x3; not in any distress. Respiratory: normal respiratory effort, lungs clear to auscultation, no wheeze, rales, rhonchi. Normal insp/exp effort, no accessory muscle use Cardiovascular: Irregular, no murmur, no edema Vessels: no JVD or carotid bruit Chest: normal inspection of chest Abdomen: normal bowel sounds, soft, nontender, no hepatosplenomegaly Musculoskeletal: no cyanosis or clubbing, extremities motor strength 5/5 Skin: no rashes, warm and dry normal turgor Neurologic: PERRL, EOMI, accommodation nl, no face palsy, no dysarthria CN's II- XI intact bilaterally and moves all extremities Psychiatric: A+Ox3, euthymic affect Lymphatic: no cervical or axillary lymphadenopathy : deferred Results & Data Results & Data ([facility]) Vital Signs (Past 12 Hours) Vital Signs Temp Pulse Resp BP Pulse Ox O2 Del Method 04/01/22 12:00 67 21 92 04/01/22 12:00 151/101 H 04/01/22 11:45 64 17 94 04/01/22 11:45 132/81 04/01/22 11:30 59 L 17 95 04/01/22 11:30 137/73 04/01/22 11:15 66 20 96 04/01/22 11:15 140/77 04/01/22 11:00 63 22 147/83 H 97 04/01/22 10:45 62 23 159/95 H 100 04/01/22 10:30 61 25 H 96 04/01/22 10:20 36.9 C 62 20 147/96 H 99 Room Air Laboratory Results Laboratory Results WBC 7.64 K/ul (4.8-10.8) 04/01/22 10:30 RBC 4.36 M/uL (4.63-6.08) L 04/01/22 10:30 Hgb 13.8 g/dl (14.0-18.0) L 04/01/22 10:30 POC Hgb 13.9 g/dl (14.0-18.0) L 04/01/22 10:45 Hct 41.4 % (40.1-51.0) 04/01/22 10:30 POC Hct 41 % (42-52) L 04/01/22 10:45 MCV 95.0 fL (80.0-100.0) 04/01/22 10:30 MCH 31.7 pg (25.0-34.0) 04/01/22 10:30 MCHC 33.3 g/dL (32.0-36.0) 04/01/22 10:30 RDW Std Deviation 45.0 fL (36.4-46.3) 04/01/22 10:30 RDW Coeff of Seg[place] 12.8 % (11.5-14.5) 04/01/22 10:30 Plt Count 230 K/uL (130-400) 04/01/22 10:30 MPV 10.0 fL (9.4-12.4) 04/01/22 10:30 Immature Gran % (Auto) 0.4 % 04/01/22 10:30 Neut % (Auto) 63.8 % 04/01/22 10:30 Lymph % (Auto) 26.3 % 04/01/22 10:30 [place] % (Auto) 4.5 % 04/01/22 10:30 Eos % (Auto) 4.5 % 04/01/22 10:30 Baso % (Auto) 0.5 % 04/01/22 10:30 Neut # (Auto) 4.88 K/uL (1.4-6.5) 04/01/22 10:30 Lymph # (Auto) 2.01 K/uL (1.2-3.4) 04/01/22 10:30 [place] # (Auto) 0.34 K/uL (0.24-0.82) 04/01/22 10:30 Eos # (Auto) 0.34 K/uL (0-0.50) 04/01/22 10:30 Baso # (Auto) 0.04 K/uL (0-0.2) 04/01/22 10:30 Immature Gran # (Auto) 0.03 K/uL (0.00-0.02) H 04/01/22 10:30 PT 10.9 Seconds (9.0-12.0) 04/01/22 10:30 INR 1.0 (0.9-1.1) 04/01/22 10:30 VBG pH 7.49 (7.36-7.41) H 04/01/22 13:03 VBG pCO2 55 mmHg (38-50) H 04/01/22 13:03 VBG pO2 18 mmHg 04/01/22 13:03 VBG HCO3 42 mmol/L 04/01/22 13:03 VBG O2 Saturation < 60.0 % 04/01/22 13:03 VBG Base Excess 15.8 mEq/L 04/01/22 13:03 POC Sodium 134 mmol/L (135-144) L 04/01/22 10:45 Sodium 138 mmol/L (136-145) 04/01/22 13:03 POC Potassium 3.9 mmol/L (3.3-5.0) 04/01/22 10:45 Potassium 3.1 mmol/L (3.5-5.1) L 04/01/22 13:03 POC Chloride 94 mmol/L (101-112) L 04/01/22 10:45 Chloride 92 mmol/L (98-107) L 04/01/22 13:03 Carbon Dioxide 39 mmol/L (21-32) H 04/01/22 13:03 POC Total CO2 25 mmol/L (24-31) 04/01/22 10:45 Anion Gap 7 (3-11) 04/01/22 13:03 POC Anion Gap 20.0 mmol/L (16-25) 04/01/22 10:45 POC BUN 10 mg/dl (7-18) 04/01/22 10:45 BUN 10 mg/dl (6-23) 04/01/22 13:03 Creatinine 0.92 mg/dl (0.6-1.4) 04/01/22 13:03 POC Creatinine 1.1 mg/dl (0.6-1.3) 04/01/22 10:45 Est Cr Clr Drug Dosing 69.1 ml/min 04/01/22 13:03 Est GFR ( Amer) 89.5 ml/min 04/01/22 13:03 Est GFR (Non-Af Amer) 77.2 ml/min 04/01/22 13:03 BUN/Creatinine Ratio 10.9 (10-20) 04/01/22 13:03 Glucose 201 mg/dl (70-99(Fasting)) H 04/01/22 13:03 POC Glucose (other) 191 mg/dl (70-99) H 04/01/22 10:45 Calcium 7.8 mg/dl (8.5-10.1) L 04/01/22 13:03 POC Ioniz Calcium David 1.13 mmol/l (1.12-1.32) 04/01/22 10:45 Magnesium 1.8 mg/dl (1.7-2.4) 04/01/22 10:30 Total Bilirubin 1.2 mg/dl (0.2-1.0) H 04/01/22 10:30 AST 21 U/L (13-39) 04/01/22 10:30 ALT 21 U/L (7-52) 04/01/22 10:30 Alkaline Phosphatase 73 U/L (34-104) 04/01/22 10:30 Total Creatine Kinase 77 U/L (30-223) 04/01/22 10:30 Troponin I High Sens 9.6 pg/ml (0-20) 04/01/22 10:30 Total Protein 7.2 gm/dl (6.0-8.3) 04/01/22 10:30 Albumin 3.9 gm/dl (3.4-5.0) 04/01/22 10:30 Globulin 3.3 gm/dl (2.5-4.0) 04/01/22 10:30 Albumin/Globulin Ratio 1.2 (0.9-2) 04/01/22 10:30 Lipase 40 U/L (11-82) 04/01/22 10:30 Urine Color Yellow 04/01/22 11:20 Urine Appearance Clear (Clear) 04/01/22 11:20 Urine pH >= 9.0 (4.5-7.5) H 04/01/22 11:20 Ur Specific [place] 1.008 (1.000-1.030) 04/01/22 11:20 Urine Protein Negative (Negative) 04/01/22 11:20 Urine Glucose (UA) Negative (Negative) 04/01/22 11:20 Urine Ketones Negative (Negative) 04/01/22 11:20 Urine Blood Negative (Negative) 04/01/22 11:20 Urine Nitrite Negative (Negative) 04/01/22 11:20 Urine Bilirubin Negative (Negative) 04/01/22 11:20 Urine Urobilinogen Negative (Negative) 04/01/22 11:20 Ur Leukocyte Esterase Negative (Negative) 04/01/22 11:20 Salicylates < 3.0 mg/dl (3.0-30) L 04/01/22 10:30 Urine Opiates Screen Neg (Neg) 04/01/22 11:20 Ur Methadone, Qual Neg (Neg) 04/01/22 11:20 Acetaminophen < 3 ug/ml (10-30) L 04/01/22 10:30 Urine Barbiturates Neg (Neg) 04/01/22 11:20 Ur Phencyclidine (PCP) Neg (Neg) 04/01/22 11:20 U Amphetamin/Meth Scrn Neg (Neg) 04/01/22 11:20 MDMA (Ecstasy) Screen Neg (Neg) 04/01/22 11:20 U Benzodiazepines Scrn Neg (Neg) 04/01/22 11:20 Ur Cocaine Metabolite Neg (Neg) 04/01/22 11:20 U Marijuana (THC) Screen Neg (Neg) 04/01/22 11:20 Ethyl Alcohol mg/dL < 10.0 mg/dl (<10.0) 04/01/22 10:57 SARS-CoV-2, RNA, NAAT NEGATIVE (NEGATIVE) 04/01/22 12:00 Impressions Chest X-Ray 04/01/22 10:33 XR chest 1V portable HISTORY: 82 years-old Male od acute drug overdose COMPARISON: 02/02/2011 TECHNIQUE: AP view of the chest FINDINGS: Cardiac silhouette is enlarged. Pulmonary vascular congestion with interstitial coarsening. No pneumothorax. Once again the costophrenic angles. Ill-defined bilateral airspace densities. Degenerative changes of the shoulders and spine. IMPRESSION: 1. Cardiomegaly with right greater than left interstitial coarsening. Findings may represent pulmonary edema versus a nonspecific interstitial sinus. 2. Probable trace pleural effusions. ACT 112: Negative or not required by law. The above report was generated using voice recognition software. It may contain grammatical, syntax or spelling errors. Electronically signed by: Isauro Ahn M.D. 04/01/2022 11:33 AM Code Status & VTE Plan VTE Prophylaxis Plan VTE Prophylaxis will be ordered: No
[2022-04-01 14:09] LABS: Base Excess VBG 15.3 mEq/L; HCO3 VBG 39 mmol/L; PCO2 VBG 44 mmHg (38-50); PO2 VBG 45 mmHg; pH VBG 7.56 (7.36-7.41)
[2022-04-01 14:28] LABS: BUN Creatinine Ratio 10.1 (10-20); Calcium 7.7 mg/dl (8.5-10.1); Creatinine Clr Calc Pharmacy 71.4 ml/min; Est GFR (African American) 92.3 ml/min; Est GFR (Non-African American) 79.6 ml/min; Potassium 2.9 mmol/L (3.5-5.1)
[2022-04-01 15:05] LABS: Magnesium 2.5 mg/dl (1.7-2.4)
[2022-04-01] MEDS ORDERED: POTASSIUM CHLORIDE CRTAB 20 MEQ TABCR PO STA ×2 (15:31→20:14)
[2022-04-01] MEDS: POTASSIUM CHLORIDE / WTR 10 MEQ/100 ML PLCT IV SCH ×4 (15:32→18:30)
[2022-04-01] MEDS: SODIUM BICARBONATE 8.4% 150 MEQ, POTASSIUM CHLORIDE 40 MEQ in WATER, STERILE 1,000 ML IV SCH ×2 (15:32→20:00)
--- NOTE | 2022-04-01 15:46 | Critical Care Consultation ---
Date of Consultation April 01, 2022 Assessment & Plan (1) PAF (paroxysmal atrial fibrillation): (2) History of left bundle branch block (LBBB): (3) Overdose: (4) Adverse effect of flecainide: (5) Diabetes: Plan 82-year-old male admitted to hospital because of flecainide overdose Past medical history: A. fib on apixaban, dyslipidemia, diabetes -- Flecainide overdose with wide-complex rhythm Poison control has been reached. Goal is to continue with bicarb drip at 250 mill an hour for at least 12 hours. Monitoring EKG every hour. If there is widening of the QRS then would recommend 4 A of bicarb and 200 mL free water to be infused If the sodium is low then hypertonic saline will be given to the patient. If the EKG shows QTC greater than 700 that he will need a pacemaker -- Hypertension/DLP Hold blood pressure medication for the time being -- Hypothyroidism On levothyroxine at home --Prophylaxis VTE: Apixaban on hold GI: None Lines: Peripheral Diet: N.p.o. Plan: As above EKG every hour Labs every 2 hours. We will put a central line for frequent labs as well if in case patient needs transvenous pacemaker Replace potassium as well as alkalosis will push the potassium into the cells. Care was discussed with Dr. Odom and Dr. Frazier I have personally spent 58 minutes of critical care time in the direct management of this patient. This is a life/limb threatening event. This includes time spent evaluating patient, direct bedside care, chart review, placing orders, interpretation of diagnostic studies, discussion with consultants, patient, and family members, as well as other required patient management activities. This time is exclusive of all separately billable procedures, and teaching time and separate from and in addition to any other critical care service time. Please note the above document was generated using voice recognition software. It may contain grammatical, syntax or spelling errors. History of Present Illness History of Present Illness 82-year-old male presented to the hospital complaints of dizziness Past medical history: A. fib on flecainide 100 mg twice a day and metoprolol, hypertension, dyslipidemia, chronic left bundle branch block Patient took 10 pills of flecainide which equals 1 g by mistake. He did try to throw up but was not able to. In the ED patient was found to be developing wide-complex QRS. He was hemodynamically stable He was given charcoal in the ED Dr. Barger from toxicology was contacted by the ED and recommendation was made to continue bicarb drip on the patient in for pH 7.45-7.5, sodium 150-155 Hospitalist was also at bedside at time of examination Patient systolic blood pressure was in the 130s. Heart rate in the 60s with wide-complex rhythm Denies any nausea or vomiting at that time. No shortness of breath, no dizziness. No chest pain. No dysuria, no diarrhea. Allergies Allergy/AdvReac Type Severity Reaction Status Date / Time No Known Allergies Allergy Unknown Unverified 02/10/16 08:28 Home Medications Medication Instructions Recorded Confirmed Type ATORVASTATIN (LIPITOR) 80 mg PO DAILY ##0 02/02/11 04/01/22 History Fluticasone Prop/Salmeterol 1 puff inhalation BID ##0 02/02/11 04/01/22 History (Advair Diskus 250/50 Mcg *) Glucosamine-Chondroitin 1 tab PO DAILY ##0 02/02/11 04/01/22 History (Glucosamine/Chondroitin) Levothyroxine (Synthroid *) 137 mcg PO DAILY ##0 02/02/11 04/01/22 History Metoprolol Tartrate (Lopressor) 50 mg PO HS ##0 04/13/11 04/01/22 History (Lopressor) Metoprolol Tartrate (Lopressor) 100 mg PO DAILY ##0 04/13/11 04/01/22 History (Lopressor) Flecainide (Tambocor) 100 mg PO BID #0 tabs 12/17/13 04/01/22 History Potassium Chloride (Klor-Con Ext PO DAILY #0 caps 10/20/15 History Rel) VITAMINS C & E (VITAMIN C) 1 tab PO DAILY ##0 10/20/15 History apixaban 5 mg tablet (Eliquis) 5 mg 04/01/22 History Patient History Medical History A-fib Diabetes History of left bundle branch block (LBBB) Hypertension PAF (paroxysmal atrial fibrillation) Surgical History H/O sinus surgery Family History Other Heart disease Hypertension Social History Smoking Status: Former smoker Tobacco Type: Cigarettes Hx Alcohol Use: No Hx Substance Use: No Preferred Language: Bulgarian Communication Ability: Effective Beliefs That Will Affect Care: None marital status: Current Living Situation: Alone current occupational status: employed Feels Safe at Home: Yes Safety Concerns: Feels Safe At This Time Review of Systems Review of Systems: All systems reviewed & are unremarkable except as noted in HPI & below Physical Exam Physical Exam: Constitutional: No acute distress HEENT: EOMI, PERRLA Respiratory system: Decreased air entry bilaterally, no wheeze, rhonchi, positive crackles bilateral lower lobes CVS: S1-S2 positive, no murmurs or gallops, distant heart sounds Abdomen: Soft, nontender, nondistended, positive bowel sounds x4 Extremities: +2 pulses bilaterally radialis/ dorsalis pedis, no cyanosis, no edema Neuro: Awake alert oriented x3 Psych: Normal mood and affect G/U: No [place] Skin: no rashes, warm and dry Lymphatic: no cervical or axillary lymphadenopathy Results & Data Results & Data ([facility]) Vital Signs (Past 12 Hours) Vital Signs Temp Pulse Resp BP Pulse Ox O2 Del Method 04/01/22 10:20 36.9 C 62 20 147/96 H 99 Room Air Laboratory Results 04/01/22 10:30 04/01/22 13:59 Coding Level of Care Code Critical Care 1st 30-74 mins Diagnoses PAF (paroxysmal atrial fibrillation) I48.0 History of left bundle branch block (LBBB) Z86.79 Overdose T50.901A Adverse effect of flecainide T46.2X5A Diabetes E11.9 Time Spent (min) 58
[2022-04-01 15:48] LABS: Troponin I High Sensitivity 15.3 pg/ml (0-20)
[2022-04-01] MEDS ORDERED: LIDOCAINE IV BOLUS & DRIP IV STA (16:05)
[2022-04-01 16:09] LABS: BUN Creatinine Ratio 9.9 (10-20); Calcium 7.7 mg/dl (8.5-10.1); Creatinine Clr Calc Pharmacy 64.6 ml/min; Est GFR (African American) 90.6 ml/min; Est GFR (Non-African American) 78.2 ml/min
[2022-04-01] MEDS ORDERED: LIDOCAINE/D5W DRIP 4MG/ML 2,000 MG/500 ML BAG IV SCH (16:15)
[2022-04-01] MEDS ORDERED: [UNRECOGNIZED DRUG - OTHER] IV ONE (16:21)
[2022-04-01] MEDS ORDERED: SODIUM CHLORIDE 3 % 100 ML IV ONE ×3 (16:57→20:12)
[2022-04-01] MEDS ORDERED: STAT IV STA ×4 (16:57→20:12)
--- NOTE | 2022-04-01 17:12 | Communication Note ---
Date of Service: April 01, 2022 Echocardiogram preliminary reviewed shows near normal LV systolic function without significant wall motion abnormalities Repeat EKG shows return of sinus rhythm with underlying bifascicular block similar to previous studies No need for pacing at this time Continue to monitor in ICU per protocol
--- NOTE | 2022-04-01 17:22 | Nephrology Consultation ---
Date of Consultation April 01, 2022 Assessment & Plan (1) Adverse effect of flecainide: poison control suggested I evaluate this pt for dialysis. toxicology physician cites case reports of dialysis helping with the thinking that clearing even 1-2% of drug w/ dialysis might help reduce overall drug burden. the literature on this topic is scant indeed; however case report that I found and other review of pharmacologic data on flecainide suggest that dialysis is not likely to be useful here. while the prospect of even small amount of drug removal is understandably of interest, I have concerns about risks outweighing potential benefits in initiating acute intermittent hemodialysis, an unproven treatment in this clinical situation, which can promote cardiac arrhythmias in a patient already so unstable from rhythm standpoint particularly when the established goals of care involve changing sodium and pH levels away from the normal ranges. if acute HD were to be initiated (and that would have the greatest potential for maximal drug clearance), would likely need extended and repeated treatments on a large dialyzer we have limited dialysis staffing on weekends and would unfortunately not be able to offer treatment until tomorrow in the event his status/needs were to change -continue q2h stat bmp and assessments of serum pH -continue to replete K and mag aggressively to 4 and 2 respectively -continue bicarbonate gtt and intermittent hypertonic saline >>consider IV lipid emulsion therapy which is available here and is a more commonly accepted therapy for flecainide overdose; would work w/ poison control on dosing -consider hyperventilation or/and NG tube /suction to help with serum alk alinization >>>favor discussion of transfer to center that offers ECMO as well ideally as 24/7 acute dialysis services for full range of therapeutic options to treat this rare toxicity Care coordinated w/ Drs. Odom and Lupe. Will continue to follow. History of Present Illness Reason for Consultation: flecainide overdose ? benefit from dialysis Requesting Physician: Dr Odom Attending Physician: Shilo Odom MD History of Present Illness 82 y/o M whom I'm asked to see for possible dialysis to treat flecainide overdose was admitted here this am for same. Pt denies intentional overdose but did take 10 flecainide tablets (1 gm) this am. PMH includes at least mild cognitive impairment, paroxysmal a fib controlled w/ flecainide and metoprolol and on warfarin, chronic / nonspecific LBBB on ECG, HTN, HL, TIA and vertebral dissection 1995, hypothyroid. The pt arrived to the ER in wide complex heart rhythm w/o p waves. poison control, critical care, and cardiology have been following through the day. on presentation poison control advised activated charcoal and 4 amps sodium bicarbonate. magnesium and potassium were aggressively repleted. External pacer pads were placed and pt moved to ICU. Goal through the day has been increasing serum sodium > 150 and alkalinizing serum as well. He is receiving q2h bmp and hourly ECG; lidocaine gtt is being hung. Amiodarone is on standby. as of 1699, ECG showed sinus rhythm similar to prior studies. Allergies Allergy/AdvReac Type Severity Reaction Status Date / Time No Known Allergies Allergy Unknown Unverified 02/10/16 08:28 Home Medications Medication Instructions Recorded Confirmed Type ATORVASTATIN (LIPITOR) 80 mg PO DAILY ##0 02/02/11 04/01/22 History Fluticasone Prop/Salmeterol 1 puff inhalation BID ##0 02/02/11 04/01/22 History (Advair Diskus 250/50 Mcg *) Glucosamine-Chondroitin 1 tab PO DAILY ##0 02/02/11 04/01/22 History (Glucosamine/Chondroitin) Levothyroxine (Synthroid *) 137 mcg PO DAILY ##0 02/02/11 04/01/22 History Metoprolol Tartrate (Lopressor) 50 mg PO HS ##0 04/13/11 04/01/22 History (Lopressor) Metoprolol Tartrate (Lopressor) 100 mg PO DAILY ##0 04/13/11 04/01/22 History (Lopressor) Flecainide (Tambocor) 100 mg PO BID #0 tabs 12/17/13 04/01/22 History Potassium Chloride (Klor-Con Ext PO DAILY #0 caps 10/20/15 History Rel) VITAMINS C & E (VITAMIN C) 1 tab PO DAILY ##0 10/20/15 History apixaban 5 mg tablet (Eliquis) 5 mg 04/01/22 History Patient History Medical History A-fib Diabetes History of left bundle branch block (LBBB) Hypertension PAF (paroxysmal atrial fibrillation) Surgical History H/O sinus surgery Family History Other Heart disease Hypertension Social History Smoking Status: Former smoker Tobacco Type: Cigarettes Hx Alcohol Use: No Hx Substance Use: No Preferred Language: Thai Communication Ability: Effective Beliefs That Will Affect Care: None marital status: Current Living Situation: Alone current occupational status: employed Feels Safe at Home: Yes Safety Concerns: Feels Safe At This Time Review of Systems Review of Systems: All systems reviewed & are unremarkable except as noted in HPI & below Physical Exam Constitutional: well developed, well nourished and cooperative; no acute distress Eyes: EOM intact bilaterally ENMT: Ears: no external ear abnormality Nose: no external nose abnormality Mouth: + dry oral mucous membranes Neck: no nuchal rigidity Respiratory: normal respiratory effort Auscultation: + diminished lung sounds Cardiovascular: Rate/Rhythm: regular rate and regular rhythm Heart Sounds: + murmur Extremities: no edema Gastrointestinal (Abdomen): Inspection/Auscultation: normal bowel sounds Percussion/Palpation: abdomen soft; abdomen nontender Musculoskeletal: Extremities: strength 5/5 throughout Skin: no rashes, warm and dry Neurologic: russell, fluent speech, no tremor Psychiatric: Orientation: oriented x 3 Speech: normal rate/rhythm/volume of speech Insight: + limited insight Judgement: + limited judgement Results & Data ([facility]) Vital Signs (Past 12 Hours) Vital Signs Temp Pulse Resp BP Pulse Ox O2 Del Method 04/01/22 16:01 146/79 H 04/01/22 16:01 63 23 95 04/01/22 16:00 65 18 91 04/01/22 15:45 61 19 97 04/01/22 15:30 61 18 99 04/01/22 15:15 61 26 H 97 04/01/22 15:04 61 22 96 04/01/22 15:04 139/77 04/01/22 15:00 63 19 94 04/01/22 14:30 63 16 89 L 04/01/22 14:15 64 26 H 92 04/01/22 14:00 65 14 91 04/01/22 14:00 130/69 04/01/22 13:45 66 18 94 04/01/22 13:32 129/77 04/01/22 13:32 66 26 H 04/01/22 13:31 66 15 04/01/22 14:01 Room Air 04/01/22 14:01 36.6 C 04/01/22 12:00 67 21 92 04/01/22 12:00 151/101 H 04/01/22 11:45 64 17 94 04/01/22 11:45 132/81 04/01/22 11:30 59 L 17 95 04/01/22 11:30 137/73 04/01/22 11:15 66 20 96 04/01/22 11:15 140/77 04/01/22 11:00 63 22 147/83 H 97 04/01/22 10:45 62 23 159/95 H 100 04/01/22 10:30 61 25 H 96 04/01/22 10:20 36.9 C 62 20 147/96 H 99 Room Air Laboratory Results 04/01/22 10:30 04/01/22 15:42 VBG, UA reviewed as well as mag levels Diagnostic Findings ECGs reviewed CXR 1. Cardiomegaly with right greater than left interstitial coarsening. Findings may represent pulmonary edema versus a nonspecific interstitial sinus. 2. Probable trace pleural effusions.
--- NOTE | 2022-04-01 17:39 | Procedure Note ---
Procedure Note Date of Service April 01, 2022 Note Procedure: Inserting ultrasound-guided central lineman: Dr. Rose Marie Andrade Indication: Flecainide toxicity for hypertonic saline Consent: Consent signed by patient and verified with timeout prior to procedure. Anesthesia: 1% lidocaine without epinephrine local. Procedure: Consent was verified and timeout performed. Appropriate imaging studies were reviewed prior to the procedure. Under aseptic and sterile condition, right IJ vein was accessed under direct ultrasound guidance. Guidewire was confirmed to be within the lumen of vein with the help of ultrasound. Catheter was introduced via Seldinger technique. Guide a wire was removed. Good non-pulsatile blood flow was appreciated from all the ports. The catheter was placed at 16 cm [address] in place. BioPatch was applied to the catheter and a sterile Tegaderm dressing was applied over the catheter with careful attention to sterility. Lung sliding was appreciated post procedure with the help ultrasound. Chest x-ray to follow Patient tolerated the procedure well. Blood loss: Less than 1 cc Complications: None Coding CPT Codes Tubes, Drains, and Vasc Access - Tubes, Drains, and Vasc Access: [id number] Place catheter in vein superior or inferior vena cava ([id number]) Tubes, Drains, and Vasc Access - Tubes, Drains, and Vasc Access: [id number] Ultrasound Guidance For Vascular ([id number]) [facility] [place] Procedure Codes (Charges) Tubes, Drains, and Vasc Access Procedure 1: Tubes, Drains, and Vasc Access: [id number] Place catheter in vein superior or inferior vena cava Procedure 2: Tubes, Drains, and Vasc Access: [id number] Ultrasound Guidance For Vascular
[2022-04-01 17:43] LABS: Base Excess VBG 16.9 mEq/L; HCO3 VBG 43 mmol/L; Oxygen Saturation VBG < 60.0 %; PCO2 VBG 55 mmHg (38-50); PO2 VBG 30 mmHg
--- NOTE | 2022-04-01 17:44 | XRay Report ---
XR chest 1V portable HISTORY: 82 years-old Male right IJ status post placement of a right IJ central venous catheter COMPARISON: Chest radiograph of same day at 11:19 AM TECHNIQUE: AP view of the chest FINDINGS: Cardiac silhouette is enlarged. Status post placement of a right IJ catheter with distal tip in the e xpected location of the mid SVC. Pulmonary vascular congestion with interstitial coarsening. No pneum othorax. Trace pleural effusions. Ill-defined bilateral airspace densities, mildly progressed on the left. Degenerative changes of the shoulders and spine. Subtle bilateral rib fractures are favored to be chronic. IMPRESSION: Status post placement of a right IJ central venous catheter. No postprocedural pneumothor ax. ACT 112: Negative or not required by law. The above report was generated using voice recognition software. It may contain grammatical, syntax o r spelling errors. Electronically signed by: Isauro Ahn M.D. 04/01/2022 5:43 PM
--- NOTE | 2022-04-01 17:46 | Communication Note ---
Date of Service: April 01, 2022 Critical CARE addendum: Patient's repeat EKG done at 3:11 PM showed QRS 192 with QTC of 568. Sodium was 139 with potassium of 2.9. I discussed the case with Dr. Barger who is general operator on-call. Recommended to give the patient 1 Mg per KG of lidocaine bolus followed by 100/min drip. I was about to put a central line and so that I can give him hypertonic saline as well as the goal sodium is 150. As I was about to put the central line and I did get a call from him stating that given the QRS is still prolonged he would recommend the hemodialysis. I got in touch with hospitalist and spoke with nephrology Dr. Orona discussed the case with Dr. Barger. Plan was to put the Shiley catheter in but unfortunately we do not have dialysis available in this hospital. I did put a central line in. Patient will be started on hypertonic saline 50 mL blood work will be repeated and then another 50 mL will be given. Patient will be transferred to [facility]. For possible ECMO if need be in future Currently patient is hemodynamically stable. Heart rate is in the high 50s to low 60s. We will continue with bicarb drip, replace potassium. Can give 20 mg of potassium IV fluids central line now. Try to keep potassium greater than 4, magnesium greater than 2. Will need to keep in mind once the patient becomes less alkalotic is potassium was suddenly increased so we will always need to keep that in mind I have personally spent 45 minutes of critical care time in the direct management of this patient. This is a life/limb threatening event. This includes time spent evaluating patient, direct bedside care, chart review, placing orders, interpretation of diagnostic studies, discussion with consultants, patient, and family members, as well as other required patient management activities. This time is exclusive of all separately billable procedures, and teaching time and separate from and in addition to any other critical care service time. Please note the above document was generated using voice recognition software. It may contain grammatical, syntax or spelling errors. Coding Level of Care Code Critical Care ea addt'l 30 min Time Spent (min) 45
--- NOTE | 2022-04-01 18:05 | Discharge Summary ---
Date of Service April 01, 2022 Admission HPI Per Admitting Provider Past medical history of paroxysmal A. fib on flecainide 100 mg twice daily, metoprolol 100 mg in a.m. and 50 in at bedtime, Eliquis. History of chronic left bundle branch block, hypertension, hyperlipidemia Patient took approximately 10 tablets of 100 mg flecainide at around 8 AM unintentionally. 15 minutes after the ingestion, patient started to feel dizzy. EMS was called and patient was brought here. On the way, patient drank Gatorade/water and also tried to vomit; was unable to. Patient denies any loss of consciousness; reports that dizziness is better when lying down. He he complains of fluttering feeling in the chest along with nausea and shakiness. He denies any chest pain, shortness of breath, visual disturbances, abdominal pain or urinary symptoms. Patient is last echo was in October 2018; shows EF of 55 to 59%. He is currently on Eliquis for A. fib along with flecainide and metoprolol. He lives with his . History of remote smoking; denies other substance use. On presentation to the ED, patient was hemodynamically stable with SBP of 140s to 150. His heart rate was around 60s; he was saturating well in room air. Twelve-lead EKG showed wide QRS complex with QTC of 601. CBC, BMP and LFTs were unremarkable on initial lab test. Patient was given activated charcoal. He was also given 10 A of bicarb. He was started on IV bicarb drip. Patient will be admitted to ICU. Admission Exam Per Admitting Provider Constitutional: Alert orient x3; not in any distress. Respiratory: normal respiratory effort, lungs clear to auscultation, no wheeze, rales, rhonchi. Normal insp/exp effort, no accessory muscle use Cardiovascular: Irregular, no murmur, no edema Vessels: no JVD or carotid bruit Chest: normal inspection of chest Abdomen: normal bowel sounds, soft, nontender, no hepatosplenomegaly Musculoskeletal: no cyanosis or clubbing, extremities motor strength 5/5 Skin: no rashes, warm and dry normal turgor Neurologic: PERRL, EOMI, accommodation nl, no face palsy, no dysarthria CN's II- XI intact bilaterally and moves all extremities Psychiatric: A+Ox3, euthymic affect Lymphatic: no cervical or axillary lymphadenopathy : deferred Principal Diagnosis Unintentional flecainide overdose Discharge Exam Constitutional: Alert orient x3; not in any distress. Respiratory: normal respiratory effort, lungs clear to auscultation, no wheeze, rales, rhonchi. Normal insp/exp effort, no accessory muscle use Cardiovascular: Irregular, no murmur, no edema Vessels: no JVD or carotid bruit Chest: normal inspection of chest Abdomen: normal bowel sounds, soft, nontender, no hepatosplenomegaly Musculoskeletal: no cyanosis or clubbing, extremities motor strength 5/5 Skin: no rashes, warm and dry normal turgor Neurologic: PERRL, EOMI, accommodation nl, no face palsy, no dysarthria CN's II- XI intact bilaterally and moves all extremities Psychiatric: A+Ox3, euthymic affect Lymphatic: no cervical or axillary lymphadenopathy : deferred Discharge Data Allergies Allergy/AdvReac Type Severity Reaction Status Date / Time No Known Allergies Allergy Unknown Unverified 02/10/16 08:28 Consultations 04/01/22 11:33 ED Decision to Admit Stat 04/01/22 12:20 Consult Cardiology Routine 04/01/22 13:49 Consult Linoleum Layer Apprentice Routine 04/01/22 17:44 Burn CD for patient Stat Ordered Studies 04/01/22 14:28 US point of care ultrasound Urgent Hospital Course (1) Overdose: (2) Adverse effect of flecainide: (3) Regular wide QRS complex tachycardia: Patient presents with unintentional ingestion of approximately 10 tablets of 100 mg flecainide approximately 2 and half hours prior to presentation On presentation to the ED, patient was hemodynamically stable with SBP of 140s to 150. His heart rate was around 60s; he was saturating well in room air. Twelve-lead EKG showed wide QRS complex with QTC of 601. CBC, BMP and LFTs were unremarkable on initial lab test. Patient was given activated charcoal. He was also given 10 A of bicarb. He was started on IV bicarb drip. Patient was admitted to ICU. Discussion was again done with window shade ring coverer on-call Dr. Barger; recommended that patient to be given 1 mg/kg of lidocaine bolus followed by 100/min drip as his QTC continued to prolong. Central line was also placed to give hypertonic saline with sodium goal of 150. Toxicology recommended hemodialysis as QRS was still prolonged; No dialysis capability was available in the hospital after discussion with Nephrology. Patient to be transferred to [facility] for possible need for emergent hemodialysis/ ECMO in the future. Total Time Total Time Spent Total Time Spent (In Minutes): 120 Discharge Plan Discharge Items Patient Disposition: Transfer Acute Care Hospital Reason For Visit: FLECANIDE TOXICITY Discharge Diagnosis: Unintentional flecainide overdose Activity: Resume your previous activity Non-emergency contact: Primary Care Provider Call non-emergency contact if: you have any medication questions and your symptoms worsen Follow-up/Referrals: Timmy Gee DO [Primary Care Provider] - Diet: Regular Addtl Attending Provider Instructions: Patient presented to the ED with unintentional overdose of 10 tablets of flecainide On presentation to the ED, patient was hemodynamically stable with SBP of 140s to 150. His heart rate was around 60s; he was saturating well in room air. Twelve-lead EKG showed wide QRS complex with QTC of 601. CBC, BMP and LFTs were unremarkable on initial lab test. Patient was given activated charcoal. He was also given 10 A of bicarb. He was started on IV bicarb drip. Patient will be admitted to ICU. Discussion was again done with window shade ring coverer on-call Dr. Barger; recommended that patient to be given 1 mg/kg of lidocaine bolus followed by drip. Central line was also placed to give hypertonic saline with sodium goal of 150. Toxicology recommended hemodialysis as QRS was still prolonged; 560. No dialysis capability was available in the hospital after discussion with Nephrology. Patient to be transferred to [facility] for possible need for emergent hemodialysis/ ECMO in the future. Addtl Tool Crib Manager Provider Instructions: Date of Service: April 01, 2022 Current Inpatient Medications Sodium Bicarbonate 150 meq/Potassium Chloride 40 meq/Sterile Water 1,170 mls @ 250 mls/hr IV .Q4H41M [facility] Stop: 05/01/22 15:49 Last Admin: 04/01/22 15:32 Dose: 250 mls/hr Potassium Chloride (K Adilson / Wtr) 10 meq in 100 mls @ 100 mls/hr IV Q1H [facility] Stop: 04/01/22 18:44 Last Admin: 04/01/22 17:35 Dose: Not Given Lidocaine HCl/Dextrose (Xylocaine/D5w Drip 4mg/Ml) 2,000 mg in 500 mls @ 15 mls/hr IV .Q24H [facility]; Protocol Stop: 05/01/22 16:14 Last Admin: 04/01/22 16:42 Dose: 1 mg/min, 15 mls/hr Miscellaneous (Icu Protocol For Hyperglycemia) 1 each N/A ACHS [facility] Stop: 04/03/22 16:29 Pending Studies at Discharge: No Stand-Alone Forms: My [facility] Skilled Items Patient informed of condition?: Yes DNR: No Discharge Level of Care: Other Communicable Disease: No Discharge Prognosis: Stable Lines: PICC Urinary Catheter: No Medications and DC Order Prescriptions: Continued ATORVASTATIN (LIPITOR) 80 MG tablet 80 mg PO DAILY Qty: 0 Fluticasone Prop/Salmeterol (Advair Diskus 250/50 Mcg *) AEROSOL,POWDR 1 puff Inhalation BID Qty: 0 Glucosamine-Chondroitin (Glucosamine/Chondroitin) 500 MG/400 MG capsule 1 tab PO DAILY Qty: 0 Levothyroxine (Synthroid *) 0.15 MG tablet 137 mcg PO DAILY Qty: 0 Metoprolol Tartrate (Lopressor) (Lopressor) 50 MG tablet 100 mg PO DAILY Qty: 0 Metoprolol Tartrate (Lopressor) (Lopressor) 25 MG tablet 50 mg PO HS Qty: 0 Flecainide (Tambocor) 100 MG tablet 100 mg PO BID Qty: 0 Potassium Chloride (Klor-Con Ext Rel) [id number] PO DAILY Qty: 0 VITAMINS C & E (VITAMIN C) 1 CAP capsule 1 tab PO DAILY Qty: 0 Eliquis 5 mg tablet 5 mg Admission Data Admit Date/Time: 04/01/22 12:12 Attending Provider: Shilo Odom Admit Provider: Shilo Odom Primary Care Provider: Timmy Gee Other Providers: Shilo Odom ; Bucky Frazier ; Rose Marie Andrade
[2022-04-01 18:10] LABS: BUN Creatinine Ratio 9.4 (10-20); Calcium 7.9 mg/dl (8.5-10.1); Creatinine Clr Calc Pharmacy 69.2 ml/min; Est GFR (Non-African American) 81.1 ml/min; Magnesium 2.2 mg/dl (1.7-2.4)
[2022-04-01] MEDS: ICU Protocol for HYPERglycemia SCH ×2 (18:20→20:24)
[2022-04-01] MEDS ORDERED: SODIUM CHLORIDE 3 % 150 ML IV ONE (19:24)
[2022-04-01 19:43] LABS: Base Excess VBG 18.3 mEq/L; HCO3 VBG 45 mmol/L; Oxygen Saturation VBG < 60.0 %; PCO2 VBG 57 mmHg (38-50); PO2 VBG 26 mmHg
[2022-04-01 20:10] LABS: BUN Creatinine Ratio 9.1 (10-20); Calcium 7.4 mg/dl (8.5-10.1); Creatinine Clr Calc Pharmacy 66.8 ml/min; Est GFR (African American) 92.7 ml/min; Potassium 3.9 mmol/L (3.5-5.1)
[2022-04-01 20:12] LABS: Troponin I High Sensitivity 13.3 pg/ml (0-20)
--- NOTE | 2022-04-03 05:47 | Electrocardiogram Report ---
Test Reason : Blood Pressure : / mmHG Vent. Rate : 062 BPM Atrial Rate : 062 BPM P-R Int : 352 ms QRS Dur : 178 ms QT Int : 562 ms P-R-T Axes : 000 -60 040 degrees QTc Int : 570 ms Sinus rhythm with 1st degree A-V block Left axis deviation Right bundle branch block Abnormal ECG When compared with ECG of 01-APR-2022 10:22, Sinus rhythm has replaced Wide QRS rhythm Confirmed by Luke Patel ([id number]) on 04/03/2022 5:47:22 AM Referred By: REFERRED SELF Confirmed By:Luke Patel
--- NOTE | 2022-04-03 05:47 | Electrocardiogram Report ---
Test Reason : Blood Pressure : / mmHG Vent. Rate : 063 BPM Atrial Rate : 068 BPM P-R Int : 000 ms QRS Dur : 168 ms QT Int : 588 ms P-R-T Axes : 000 -81 035 degrees QTc Int : 601 ms Wide QRS rhythm Left axis deviation Right bundle branch block Abnormal ECG When compared with ECG of 13-NOV-2018 19:42, Wide QRS rhythm has replaced Sinus rhythm Confirmed by Luke Patel ([id number]) on 04/03/2022 5:46:35 AM Referred By: REFERRED SELF Confirmed By:Luke Patel
--- NOTE | 2022-04-03 05:48 | Electrocardiogram Report ---
Test Reason : Blood Pressure : / mmHG Vent. Rate : 063 BPM Atrial Rate : 063 BPM P-R Int : 324 ms QRS Dur : 178 ms QT Int : 558 ms P-R-T Axes : 000 -62 033 degrees QTc Int : 571 ms Sinus rhythm with 1st degree A-V block Left axis deviation Right bundle branch block Abnormal ECG When compared with ECG of 01-APR-2022 10:53, No significant change Confirmed by Luke Patel ([id number]) on 04/03/2022 5:48:05 AM Referred By: REFERRED SELF Confirmed By:Luke Patel
--- NOTE | 2022-04-03 05:49 | Electrocardiogram Report ---
Test Reason : Blood Pressure : / mmHG Vent. Rate : 065 BPM Atrial Rate : 063 BPM P-R Int : 304 ms QRS Dur : 192 ms QT Int : 588 ms P-R-T Axes : 000 -59 030 degrees QTc Int : 611 ms Poor data quality, interpretation may be adversely affected Sinus rhythm with 1st degree A-V block Left axis deviation Left bundle branch block Abnormal ECG When compared with ECG of 01-APR-2022 11:03, Left bundle branch block has replaced Right bundle branch block Confirmed by Luke Patel ([id number]) on 04/03/2022 5:49:30 AM Referred By: REFERRED SELF Confirmed By:Luke Patel
--- NOTE | 2022-04-03 05:50 | Electrocardiogram Report ---
Test Reason : Blood Pressure : / mmHG Vent. Rate : 064 BPM Atrial Rate : 064 BPM P-R Int : 320 ms QRS Dur : 202 ms QT Int : 578 ms P-R-T Axes : -03 -59 082 degrees QTc Int : 596 ms Sinus rhythm with 1st degree A-V block Left axis deviation Right bundle branch block Abnormal ECG When compared with ECG of 01-APR-2022 11:24, No significant change was found Confirmed by Luke Patel ([id number]) on 04/03/2022 5:50:16 AM Referred By: REFERRED SELF Confirmed By:Luke Patel
--- NOTE | 2022-04-03 05:50 | Electrocardiogram Report ---
Test Reason : Blood Pressure : / mmHG Vent. Rate : 062 BPM Atrial Rate : 062 BPM P-R Int : 336 ms QRS Dur : 202 ms QT Int : 546 ms P-R-T Axes : 023 -71 065 degrees QTc Int : 554 ms Sinus rhythm with 1st degree A-V block Left axis deviation Right bundle branch block Abnormal ECG When compared with ECG of 01-APR-2022 11:06, Right bundle branch block has replaced Left bundle branch block Confirmed by Luke Patel ([id number]) on 04/03/2022 5:49:56 AM Referred By: REFERRED SELF Confirmed By:Luke Patel
--- NOTE | 2022-04-03 05:51 | Electrocardiogram Report ---
Test Reason : Blood Pressure : / mmHG Vent. Rate : 064 BPM Atrial Rate : 076 BPM P-R Int : 240 ms QRS Dur : 184 ms QT Int : 588 ms P-R-T Axes : 000 -57 067 degrees QTc Int : 606 ms Sinus rhythm with 1st degree A-V block Left axis deviation Right bundle branch block Abnormal ECG When compared with ECG of 01-APR-2022 13:05, No significant change Confirmed by Luke Patel ([id number]) on 04/03/2022 5:51:27 AM Referred By: REFERRED SELF Confirmed By:Luke Patel
--- NOTE | 2022-04-03 05:52 | Electrocardiogram Report ---
Test Reason : Blood Pressure : / mmHG Vent. Rate : 060 BPM Atrial Rate : 060 BPM P-R Int : 270 ms QRS Dur : 192 ms QT Int : 568 ms P-R-T Axes : 012 -59 084 degrees QTc Int : 568 ms Sinus rhythm with 1st degree A-V block Right bundle branch block Left anterior fascicular block Bifascicular block Abnormal ECG When compared with ECG of 01-APR-2022 14:10, No significant change Confirmed by Luke Patel ([id number]) on 04/03/2022 5:51:46 AM Referred By: REFERRED SELF Confirmed By:Luke Patel
--- NOTE | 2022-04-03 05:52 | Electrocardiogram Report ---
Test Reason : Blood Pressure : / mmHG Vent. Rate : 060 BPM Atrial Rate : 060 BPM P-R Int : 274 ms QRS Dur : 184 ms QT Int : 568 ms P-R-T Axes : 009 -60 071 degrees QTc Int : 568 ms Sinus rhythm with 1st degree A-V block Left axis deviation Right bundle branch block Abnormal ECG When compared with ECG of 01-APR-2022 15:11, No significant change was found Confirmed by Luke Patel ([id number]) on 04/03/2022 5:51:59 AM Referred By: REFERRED SELF Confirmed By:Luke Patel
--- NOTE | 2022-04-03 05:53 | Electrocardiogram Report ---
Test Reason : Blood Pressure : / mmHG Vent. Rate : 057 BPM Atrial Rate : 057 BPM P-R Int : 288 ms QRS Dur : 178 ms QT Int : 554 ms P-R-T Axes : 000 -53 038 degrees QTc Int : 539 ms Sinus bradycardia with 1st degree A-V block Left axis deviation Non-specific intra-ventricular conduction block Abnormal ECG When compared with ECG of 01-APR-2022 16:07, Non-specific intra-ventricular conduction block has replaced Right bundle branch block Confirmed by Luke Patel ([id number]) on 04/03/2022 5:52:51 AM Referred By: REFERRED SELF Confirmed By:Luke Patel
--- NOTE | 2022-04-03 05:53 | Electrocardiogram Report ---
Test Reason : Blood Pressure : / mmHG Vent. Rate : 060 BPM Atrial Rate : 062 BPM P-R Int : 264 ms QRS Dur : 170 ms QT Int : 540 ms P-R-T Axes : 000 -53 -09 degrees QTc Int : 540 ms Sinus rhythm with 1st degree A-V block Left axis deviation Non-specific intra-ventricular conduction block Abnormal ECG When compared with ECG of 01-APR-2022 18:01, No significant change Confirmed by Luke Patel ([id number]) on 04/03/2022 5:53:32 AM Referred By: REFERRED SELF Confirmed By:Luke Patel
--- NOTE | 2022-04-03 05:54 | Electrocardiogram Report ---
Test Reason : Blood Pressure : / mmHG Vent. Rate : 058 BPM Atrial Rate : 058 BPM P-R Int : 234 ms QRS Dur : 172 ms QT Int : 550 ms P-R-T Axes : 007 -50 -27 degrees QTc Int : 539 ms Sinus bradycardia with 1st degree A-V block with Premature atrial complexes Left axis deviation Non-specific intra-ventricular conduction block Abnormal ECG When compared with ECG of 01-APR-2022 19:17, Premature atrial complexes are now Present Confirmed by Luke Patel ([id number]) on 04/03/2022 5:54:15 AM Referred By: REFERRED SELF Confirmed By:Luke Patel
== END 2022-04-01 20:40 | disposition short-term general hospital (02) | DRG 918 ==
LOC: ED 10:16 → 1E 12:12
DX: Y92.89 Other specified places as the place of occurrence of the external cause; I48.0 Paroxysmal atrial fibrillation; Z79.890 Hormone replacement therapy; E03.9 Hypothyroidism, unspecified; R00.0 Tachycardia, unspecified; E11.9 Type 2 diabetes mellitus without complications; Q21.12 Patent foramen ovale; I48.20 Chronic atrial fibrillation, unspecified; I45.2 Bifascicular block; I44.0 Atrioventricular block, first degree; I10 Essential (primary) hypertension; I49.8 Other specified cardiac arrhythmias; Z87.891 Personal history of nicotine dependence; Z86.73 Personal history of transient ischemic attack (TIA), and cerebral infarction without residual deficits; E78.5 Hyperlipidemia, unspecified; T46.2X1A Poisoning by other antidysrhythmic drugs, accidental (unintentional), initial encounter; Z79.01 Long term (current) use of anticoagulants; I45.10 Unspecified right bundle-branch block; G31.84 Mild cognitive impairment of uncertain or unknown etiology